=== PATIENT | female | born 1955 | race Caucasian/White ===

== ENCOUNTER 2017-06-16 07:28 | Day surgery (SDC) | payer OTHER ==
[~2017-06-16] VITALS: Ht 177.8 cm; Wt 112.0 kg
[~2017-06-16 07:28] MED LIST: ADVAIR 250-501 EACH INH; ADVAIR HFA 115-12 GM IH; ALPHAGAN P5 M1; ALREX5 ML OPTH; CHOLESTYRAMINE P4 GM PO; CITRUCEL POWDE454 GM PO; COLACE100 MG PO; DILAUDID4 MG PO; GLUCOPHAGE XR500 MG PO; GLUCOPHAGE500 MG PO; HYTRIN5 MG PO; HYZAAR 100-251 EACH PO; KAON-CL 1010 MEQ PO; KLOR-CON 1010 MEQ PO; LIPITOR40 MG PO; MACROBID 100 M100 MG PO; NITROFURANTOIN50 MG PO; NORCO 10-325 T1 EACH PO; NORCO 7.5-3251 EACH PO; OMEPRAZOLE20 MG PO; OXYCODONE HCL5 MG PO; PERCOCET 7.5-31 EACH PO; POTASSIUM CHLO20 ME1 PO; PROAIR HFA8.5 GM IH; PROAIR HFA8.5 GM INH; SINGULAIR10 MG PO; XARELTO10 MG PO; ZOFRAN4 MG PO; ZOFRAN4 MG SL; ZYRTEC10 MG PO
[2017-06-16] MEDS ORDERED: ADVAIR 250-501 EACH INH (07:55)
--- NOTE | 2017-06-16 09:07 | NUR ---
06/16/17 0907 Brenda Stone 0859 - PT ARRIVED TO PACU. MAINTAINING OWN AIRWAY. PT DROWSY, DENIES PAIN AND NAUSEA. CBG TAKEN = 171.
--- NOTE | 2017-06-21 13:40 | OR ---
[facility] [address] [place], [place] [address] Signed DATE OF PROCEDURE: 06/16/17 PREOPERATIVE DIAGNOSES Colon screening. History of sigmoid diverticulosis. POSTOPERATIVE DIAGNOSES Sessile polyp at hepatic flexure (excised). Diverticular changes of sigmoid and left colon. PROCEDURE Total colonoscopy to cecum with hot snare polypectomy x1. SURGEON: Chad Lima MD. ANESTHESIA: Intravenous sedation Fentanyl 150 mcg, Versed 9 mg. INDICATIONS This is a 62-year-old white woman is a patient Dr. Preston and Dr. Singh. She last underwent colonoscopy 10 years ago. She is asymptomatic. She is known to have diverticulosis in the past. She is admitted to undergo colonoscopy for screening, understands the risks of bleeding, infection, and perforation. FINDINGS The prep was excellent. Complete colonoscopy was undertaken to the cecum. There were numerous diverticula of the sigmoid and left colon. There was 1 sessile polyp that was relatively small in the hepatic flexure, which was excised with cold morcellation or start hot snare polypectomy technique. The remaining colon was normal. PROCEDURE The patient brought to the endoscopy suite and placed in lateral decubitus position. Given intravenous sedation to the point of slurred speech and nystagmus. Preoperative antibiotic clindamycin was given due to shoulder replacement in the past. Digital rectal examination was normal. An Olympus video colonoscope was passed in the rectum and manipulated throughout the colon. Numerous diverticula were seen in the sigmoid and left colon. With the abdominal wall stabilization, the scope was passed to the cecum without problem. The ileocecal valve appeared normal. The tissue behind the ileocecal valve could not be intubated fully and therefore was grasped with the biopsy forceps, elevated, examined, and found to be nor m al. The scope was then withdrawn from that site allowing for good visualization of the right colon. At the hepatic flexure, there was a small sessile polyp. This was excised with hot snare polypectomy technique without problem. The Electronically Signed By: CHAD LIMA MD 06/21/17 1340 PATIENT NAME: JESUS NGUYEN OPERATIVE REPORT DATE OF : 57 PHYSICIAN: CHAD LIMA MD REPORT #: [id number] REPORT IS CONFIDENTIAL AND NOT TO BE RELEASED WITHOUT AUTHORIZATION [facility] [address] [place] [id number] Signed specimen was passed for pathology. Further withdrawal of scope showed a normal transverse colon, diverticula of the descending and sigmoid area. Retroflexed view in the rectum was normal. Scope was removed. The patient was taken to recovery in good condition concluding. CONCLUDING DIAGNOSES Polyp of the hepatic flexure, completely excised. Diverticulosis, sigmoid and left colon. PLAN Recommend repeat colonoscopy in 3 years due to the polyp finding sooner if clinically indicated. We will review pathology report. If the polyp is hyperplastic, she will not need repeat for a longer interval. MD REINIER Pierre/Erwin /[id number] cc: MD Shirley Acevedo MD Electronically Signed By: CHAD LIMA MD 06/21/17 1340 PATIENT NAME: NGUYENJESUS OPERATIVE REPORT DATE OF : 57 PHYSICIAN: CHAD LIMA MD REPORT #: [id number] REPORT IS CONFIDENTIAL AND NOT TO BE RELEASED WITHOUT AUTHORIZATION
== END 2017-06-16 09:40 | disposition home or self-care (01) ==
LOC: DS 07:28 → OPS 07:28 → DS 08:30 → OPS 09:40
PROVIDERS: Surgery
PROC: 0DBL8ZX Excision of Transverse Colon, Via Natural or Artificial Opening Endoscopic, Diagnostic (ICD-10-PCS; principal; 2017-06-16 08:30)
DX: Z12.11 Encounter for screening for malignant neoplasm of colon (principal); D12.3 Benign neoplasm of transverse colon; K57.30 Diverticulosis of large intestine without perforation or abscess without bleeding; K21.9 Gastro-esophageal reflux disease without esophagitis; I10 Essential (primary) hypertension; J45.909 Unspecified asthma, uncomplicated; Z88.0 Allergy status to penicillin; Z88.8 Allergy status to other drugs, medicaments and biological substances; Z90.49 Acquired absence of other specified parts of digestive tract; Z96.612 Presence of left artificial shoulder joint; Z98.890 Other specified postprocedural states
CPT/HCPCS: 99152; 99153; J2250; J3010; J7120

== ENCOUNTER 2020-10-09 07:28 | Day surgery (SDC) | payer OTHER ==
[~2020-10-09] VITALS: Ht 177.8 cm; Wt 95.9 kg
--- NOTE | ~2020-10-09 | OR ---
[facility] [address] [place], [place] [address] Draft DATE OF OPERATION: 10/09/2020 SURGEON: Chad Lima MD PREOPERATIVE DIAGNOSIS: History of tubular adenoma, splenic flexure 2017. POSTOPERATIVE DIAGNOSES: 1. Extensive diverticulosis. 2. Small polyp at cecum (excised). PROCEDURE: Total colonoscopy to cecum with cold morcellation polypectomy x1. ANESTHESIA: Intravenous sedation, fentanyl 150 mcg and Versed 7 mg. INDICATION: This 65-year-old white woman is a patient of Dr. Preston and Dr. Singh. She is known to have a tubular adenoma excised from the hepatic flexure in 2017. She is admitted at this time to undergo surveillance colonoscopy. She is symptom free currently having no bleeding, diarrhea or constipation problems. She has had joint replacement in the past and Ancef 2 g was given preoperatively. She understands the risks of bleeding, infection, and perforation related to colonoscopy and wished to proceed. FINDINGS: The prep was good. Complete colonoscopy was undertaken of the cecum without question. She had numerous diverticula of the sigmoid and left colon. Additionally, there was a small polyp at the cecum, which was excised with cold morcellation technique. Narrow band imaging confirmed it highly probable to be an adenoma. There were no other findings of note. DESCRIPTION OF PROCEDURE: The patient was brought to the endoscopy suite and placed in lateral decubitus position, given intravenous sedation to the point of slurred speech and nystagmus. Digital rectal examination was normal. An Olympus video colonoscope was passed in the rectum and manipulated throughout the colon ultimately intubating the cecum. Irrigation was undertaken confirming the appendiceal orifice and ileocecal valve. Noted was a small polyp in the distal cecum, PATIENT NAME: JESUS NGUYNE OPERATIVE REPORT DATE OF : 57 REPORT #: [id number] PHYSICIAN: CHAD LIMA MD PCP: JOHN SINGH MD REPORT IS CONFIDENTIAL AND NOT TO BE RELEASED WITHOUT AUTHORIZATION [facility] [address] [place] [address] Draft proximal ascending colon. Narrow band imaging confirmed likely to be an adenoma. This was excised with cold morcellation technique completely. The scope was withdrawn and remaining colon was normal except for numerous diverticula scattered from transverse colon and most intensely noted in the sigmoid. Retroflexed view of the rectum was normal. Scope was removed and the patient was taken to the recovery room in good condition. CONCLUDING DIAGNOSIS: 1. Small polyp at cecum. 2. Extensive diverticular changes of sigmoid and left colon and scattered diverticula elsewhere. PLAN: Recommend a high-fiber diet regarding the diverticular disease and repeat colonoscopy in 5 years sooner if clinically indicated. She will return to the ongoing care of Dr. Singh and Dr. Preston. MD REINIER Pierre/JAZZL /[id number] cc: MD John Loredo MD Copies: ANDREA PRESTON MD, JONATHAN MD ~ PATIENT NAME: JESUS NGUYEN NORI OPERATIVE REPORT DATE OF : 57 REPORT #: [id number] PHYSICIAN: CHAD LIMA MD PCP: JOHN SINGH MD REPORT IS CONFIDENTIAL AND NOT TO BE RELEASED WITHOUT AUTHORIZATION
--- NOTE | 2020-10-09 09:29 | NUR ---
10/09/20 0929 Avila,Margret 6278 PT ARRIVED TO PACU ON 3L VIA NC, PT AWAKE OFF AND ON. PT DENIES PAIN AND NAUSEA. PT ENCOURAGED TO PASS GAS. VSS.
--- NOTE | 2020-10-11 11:55 | PATH ---
[facility] [address] [place] [id number] Signed SPECIMEN(S): A CECUM POLYP SPECIMEN SOURCE: A. CECUM POLYP CLINICAL HISTORY: Colonoscopy with poss. biopsies. History of polyps. MICROSCOPIC DESCRIPTION: Histologic sections of all submitted blocks are examined by light microscopy. These findings, together with the gross examination, support the pathologic diagnosis. FINAL PATHOLOGIC DIAGNOSIS: Colon, cecum, polyp, polypectomy: - Tubular adenoma. - Negative for high-grade dysplasia or malignancy. NAL:cml:C2NR GROSS DESCRIPTION: The specimen, labeled "LP, cecum polyp," is received in formalin and consists of one celaya soft tissue fragment that measures 0.3 cm in greatest dimension. The specimen is entirely submitted in cassette (A1). JS (under the direct supervision of a pathologist) The Gross Description was prepared using a voice recognition system. The report was reviewed for accuracy; however, sound-alike word errors, addition and/or deletions may occur. If there is any question about this report, please contact Client Services. PERFORMING LABORATORY: The technical component was performed by [facility], [address] [place] [id number] (Director Of Enrollment: Marilee Lemons MD; CLIA# [id number]). [facility], [address] [place] [address] (CLIA# [id number]). Diagnostician: Arline Levy MD Pathologist Electronically Signed 10/11/2020 PATIENT NAME: JESUS NGUYEN PATHOLOGY DATE OF : 57 REPORT #: [id number] PHYSICIAN: [facility] PATHOLOGY PCP: JOHN CASE MD REPORT IS CONFIDENTIAL AND NOT TO BE RELEASED WITHOUT AUTHORIZATION [address] [address] Signed Copies: ~ PATIENT NAME: JESUS NGUYEN PATHOLOGY DATE OF : 57 REPORT #: [id number] PHYSICIAN: [facility]UD PATHOLOGY PCP: JOHN CASE MD REPORT IS CONFIDENTIAL AND NOT TO BE RELEASED WITHOUT AUTHORIZATION
== END 2020-10-09 09:52 | disposition home or self-care (01) ==
LOC: OPS 07:28 → DS 07:28 → OPS 08:30
PROVIDERS: ATTEND Surgery
PROC: 0DBH8ZX Excision of Cecum, Via Natural or Artificial Opening Endoscopic, Diagnostic (ICD-10-PCS; principal; 2020-10-09 08:30)
DX: Z12.11 Encounter for screening for malignant neoplasm of colon (principal); D12.0 Benign neoplasm of cecum; K57.30 Diverticulosis of large intestine without perforation or abscess without bleeding; I10 Essential (primary) hypertension; E11.9 Type 2 diabetes mellitus without complications; E66.01 Morbid (severe) obesity due to excess calories; K43.2 Incisional hernia without obstruction or gangrene; K21.9 Gastro-esophageal reflux disease without esophagitis; Z86.010 Personal history of colon polyps; Z79.84 Long term (current) use of oral hypoglycemic drugs; J45.909 Unspecified asthma, uncomplicated; Z88.1 Allergy status to other antibiotic agents; Z88.0 Allergy status to penicillin; Z88.2 Allergy status to sulfonamides; Z88.8 Allergy status to other drugs, medicaments and biological substances
CPT/HCPCS: 99153; G0500; J0690; J2250; J3010; J7121

== ENCOUNTER 2022-08-31 13:33 | Emergency (ER) | payer MEDICARE, OTHER ==
[~2022-08-31] VITALS: Ht 177.8 cm; Wt 95.7 kg
--- NOTE | 2022-08-31 19:02 | EKG ---
[facility] [address] [facility] [place] [address] Signed Sinus tachycardia Otherwise normal ECG No previous ECGs available Confirmed by RANDI DUNAWAY MD ([id number]) on 08/31/2022 7:02:38 PM Electronically Signed By: RANDI DUNAWAY MD 08/31/221901 PATIENT NAME: JESUS NGUYEN Electrocardiogram DATE OF : 57 PHYSICIAN: RANDI DUNAWAY MD REPORT #: [id number] REPORT IS CONFIDENTIAL AND NOT TO BE RELEASED WITHOUT AUTHORIZATION
== END 2022-08-31 17:30 | disposition home or self-care (01) ==
LOC: ED 13:33
DX: R00.2 Palpitations (principal); R07.89 Other chest pain; Z88.0 Allergy status to penicillin; Z88.2 Allergy status to sulfonamides; Z88.1 Allergy status to other antibiotic agents; Z88.8 Allergy status to other drugs, medicaments and biological substances; Z79.899 Other long term (current) drug therapy; Z79.84 Long term (current) use of oral hypoglycemic drugs
CPT/HCPCS: 36415; 71045; 80053; 84484; 85025; 93005; 93010; 99285-25

== ENCOUNTER 2024-07-14 06:28 | Day surgery (SDC) | payer MEDICARE, OTHER ==
[2024-07-08 10:22] VITALS: BP 140/72
[~2024-07-14] VITALS: Ht 177.8 cm; Wt 95.5 kg
[~2024-07-14 06:28] MED LIST changes: +ALPHA LIPOIC A300 MG PO; +ESTRACE42.5 GM VAGINAL; +LACTATED RINGER'S 1,000 ML IV SCH; +LO-DOSE ASPIRIN81 MG PO; +MAGNESIUM250 M1 PO; +XALATAN2.5 ML OPTH
[2024-07-14 06:39] VITALS: BP 155/65
[2024-07-14] MEDS ORDERED: IBLOOD GLUCOSE TEST STRIP 1 EA TEST VI PRN ×2 (07:00→08:45)
[2024-07-14] MEDS ORDERED: FAMOTIDINE 20 MG/ 2 ML VIAL IV SCH (07:00)
[2024-07-14] MEDS ORDERED: LIDOCAINE HCL 1% 5 ML SDV INJ ONE (07:00)
[2024-07-14] MEDS ORDERED: CEFAZOLIN SODIUM 2 GM/20 ML SYR IV ONE (08:30)
[2024-07-14] MEDS ORDERED: propofoL 200 MG/20 ML VIAL ONE ×2 (08:33→08:52)
[2024-07-14] MEDS ORDERED: LIDOCAINE HCL 2% 5 ML SDV ONE (08:33)
[2024-07-14] MEDS ORDERED: KETOROLAC TROMETHAMINE 30 MG/ML VIAL ONE (08:34)
[2024-07-14] MEDS ORDERED: ondansetron HCL 4 MG/2 ML VIAL ONE (08:34)
[2024-07-14] MEDS ORDERED: DEXAMETHASONE SOD PHOS 4 MG/ML VIAL ONE (08:34)
[2024-07-14] MEDS ORDERED: fentaNYL citrate 100 MCG/2 ML VIAL ONE (08:37)
[2024-07-14] MEDS ORDERED: NALOXONE HCL 0.4 MG SYR IV PRN ×2 (08:45→09:30)
[2024-07-14] MEDS ORDERED: droPERidol 5 MG/2 ML VIAL IV PRN (08:45)
[2024-07-14] MEDS ORDERED: ondansetron HCL 4 MG/2 ML VIAL IV PRN ×2 (08:45→09:30)
[2024-07-14] MEDS ORDERED: fentaNYL citrate 50 MCG/ML SDV IV PRN (08:45)
[2024-07-14] MEDS ORDERED: droPERidol 5 MG/2 ML VIAL ONE (08:57)
[2024-07-14] MEDS ORDERED: PROCHLORPERAZINE EDISYLATE 10 MG/2 ML VIAL IV PRN (09:30)
[2024-07-14] MEDS ORDERED: HYDROCODONE/ACETA 5/325 TAB PO PRN (09:30)
[2024-07-14] MEDS ORDERED: METOCLOPRAMIDE HCL 10 MG/2 ML SDV IV PRN (09:30)
[2024-07-14] MEDS ORDERED: MAGNESIUM HYDROXIDE/AL HYDROX 30 ML CUP PO PRN (09:30)
[2024-07-14] MEDS ORDERED: IBUPROFEN 800 MG TAB PO PRN (09:30)
[2024-07-14] MEDS ORDERED: FAMOTIDINE 20 MG TAB PO PRN (09:30)
[2024-07-14] MEDS ORDERED: LACTATED RINGER'S 1,000 ML IV SCH (09:30)
[2024-07-14] MEDS ORDERED: MORPHINE SULFATE 10 MG/ML VIAL IV PRN (09:30)
[2024-07-14] MEDS ORDERED: ondansetron HCL 4 MG TAB PO PRN (09:30)
--- NOTE | 2024-07-14 09:33 | NUR ---
07/14/[address] PRESENTS TO THE BEDSIDE AND IS TALKING WITH PATIENT. PATIENT'S QUESTIONS ARE ANSWERED. SHE CONTINUES TO REST QUIETLY WITH HER EYES CLOSED, WHEN UNSTIMULATED. RESPIRATIONS EVEN AND UNLABORED.
[2024-07-14] MEDS ORDERED: HYDROCODON-ACE1 EA10 PO (09:47)
[2024-07-14] MEDS ORDERED: MOTRIN IB200 MG PO (09:47)
[2024-07-14 10:00] VITALS: BP 132/65
--- NOTE | 2024-07-16 18:16 | PATH ---
[facility] [address] [facility] [place], [place] [address] Signed SPECIMEN(S): A ENDOMETRIAL CURETTINGS AND FIBROID SPECIMEN SOURCE: A. ENDOMETRIAL CURETTINGS AND FIBROID CLINICAL HISTORY: Postmenopausal bleeding. FINAL PATHOLOGIC DIAGNOSIS: Endometrial curettings and fibroid: - Fragments of weakly proliferative endometrium, negative for hyperplasia or atypia. - Fragments of benign myometrium. - See Comment. COMMENT: The myometrial fragments have benign features and while not specifically diagnostic of leiomyoma based on their fragmented nature, they are compatible with the history. Clinical correlation requested. JVR:sharon MICROSCOPIC EXAMINATION: Histologic sections of all submitted blocks are examined by light microscopy. These findings, together with the gross examination, support the pathologic diagnosis. GROSS DESCRIPTION: The specimen, labeled and designated "Luis Nguyen, per requisition endometrial curetting and fibroid," is received in formalin and consists of a 3.1 x 1 x 0.7 cm aggregate of celaya-white tissue fragments. All portions are homogeneous in shape, size, and texture. The specimen is entirely submitted in cassette A1. AA (under the direct supervision of a pathologist) The Gross Description was prepared using a voice recognition system. The report was reviewed for accuracy; however, sound-alike word errors, addition and/or deletions may occur. If there is any question about this report, please contact Client Services. PERFORMING LABORATORY: Technical component was performed by [employer], Yi Martino, PATIENT NAME: JESUS NGUYEN PATHOLOGY DATE OF : 57 REPORT #: [id number] PHYSICIAN: SAUD PATHOLOGY PCP: XANDER MOYER MD REPORT IS CONFIDENTIAL AND NOT TO BE RELEASED WITHOUT AUTHORIZATION [address] [place], [place] [address] [place] [address] (CLIA# [id number]). Professional interpretation [facility] by [facility] - [address] [address] (CLIA#: [id number]). Diagnostician: Angelo Benjamin MD Pathologist Electronically Signed 07/16/2024 Copies: ~ PATIENT NAME: JESUS NGUYEN PATHOLOGY DATE OF : 57 REPORT #: [id number] PHYSICIAN: SAUD PATHOLOGY PCP: XANDER MOYER MD REPORT IS CONFIDENTIAL AND NOT TO BE RELEASED WITHOUT AUTHORIZATION
--- NOTE | 2024-07-18 15:21 | OR ---
[facility] [address] [place], [place] [address] Signed DATE OF OPERATION: 07/14/2024 SURGEON: Shirley Preston MD PREOPERATIVE DIAGNOSIS: Postmenopausal bleeding. POSTOPERATIVE DIAGNOSIS: Postmenopausal bleeding, probable fibroid. PROCEDURE: Hysteroscopy resection of endometrial lesion. ANESTHESIA: MAC. ESTIMATED BLOOD LOSS: 10 mL. INDICATIONS AND FINDINGS: The patient is a 69-year-old female, who has had some recent abnormal bleeding. Endometrial biopsy was consistent with surface endometrium only. It was felt that further evaluation was needed. At the time of surgery, exam under anesthesia revealed a top-normal size uterus. There was a probable fibroid in the left lower fundus. DESCRIPTION OF PROCEDURE: The patient was prepped and draped in the dorsal lithotomy position. A weighted speculum was placed. The anterior lip of the cervix was visualized and grasped with single-tooth tenaculum. The cavity was sounded to 10 cm. The endocervical canal was then easily dilated to a #8 dilator. The MyoSure device was placed and the cavity evaluated. The MyoSure Lite was then placed and the lesion at the left lower posterior fundus was resected. This appeared to be fibroid by its texture. The remaining cavity appeared atrophic. After the lesion was resected, the procedure was terminated. The instruments were removed. There was no evidence of any ongoing bleeding from the tenaculum site. All sponge and needle counts were correct. She tolerated the procedure well and was taken to the recovery room in good condition. Electronically Signed By: SHIRLEY PRESTON MD 07/18/24 1521 PATIENT NAME: JESUS NGUYEN OPERATIVE REPORT DATE OF : 57 REPORT #: [id number] PHYSICIAN: SHIRLEY PRESTON MD PCP: XANDER MOYER MD REPORT IS CONFIDENTIAL AND NOT TO BE RELEASED WITHOUT AUTHORIZATION [address] [address] Signed MD SUZETTE Loredo/MODL /[id number] Copies: ~ Electronically Signed By: SHIRLEY PRESTON MD 07/18/24 1521 PATIENT NAME: JESUS NGUYEN OPERATIVE REPORT DATE OF : 57 REPORT #: [id number] PHYSICIAN: SHIRLEY PRESTON MD PCP: XANDER MOYER MD REPORT IS CONFIDENTIAL AND NOT TO BE RELEASED WITHOUT AUTHORIZATION
== END 2024-07-14 10:15 | disposition home or self-care (01) ==
LOC: OPS 06:28 → DS 06:28 → OPS 08:45 → DS 08:45 → OPS 10:15 → DS 07-15 08:45 → OPS 07-15 08:45
PROVIDERS: ATTEND Obstetrics & Gynecology
PROC: 0UB98ZZ Excision of Uterus, Via Natural or Artificial Opening Endoscopic (ICD-10-PCS; principal; 2024-07-14 08:45)
DX: N95.0 Postmenopausal bleeding (principal); J45.20 Mild intermittent asthma, uncomplicated; I10 Essential (primary) hypertension; E11.43 Type 2 diabetes mellitus with diabetic autonomic (poly)neuropathy; K31.84 Gastroparesis; Z79.82 Long term (current) use of aspirin; Z79.84 Long term (current) use of oral hypoglycemic drugs; Z79.899 Other long term (current) drug therapy; Z88.2 Allergy status to sulfonamides; Z88.0 Allergy status to penicillin; Z88.1 Allergy status to other antibiotic agents; Z90.49 Acquired absence of other specified parts of digestive tract
CPT/HCPCS: 00952; 88305; J0690; J1100; J1790; J1885; J2003; J2405; J2704; J3010; J7121